=== PATIENT | female | born 1955 | race Caucasian/White ===

== ENCOUNTER 2021-11-05 20:51 | Emergency (ER) | payer MEDICARE ==
[2021-11-05 20:59] VITALS: BP 137/85
[2021-11-05 21:00] VITALS: BP 137/87
[2021-11-05] MEDS ORDERED: LEVOTHYROXIN50 MCG PO (21:20)
[2021-11-05] MEDS ORDERED: METOPROL TAR25 MG PO (21:21)
[2021-11-05] MEDS ORDERED: ATORVASTATIN CA10 MG PO (21:21)
[2021-11-05] MEDS ORDERED: MEDROL DOSEPAK4 MG PO (23:21)
== END 2021-11-05 23:15 | disposition home or self-care (01) ==
LOC: ED 20:51
DX: T63.461A Toxic effect of venom of wasps, accidental (unintentional), initial encounter (principal); S60.446A External constriction of right little finger, initial encounter; W49.04XA Ring or other jewelry causing external constriction, initial encounter